=== PATIENT | female | born 1955 | race Caucasian/White ===

== ENCOUNTER 2018-08-23 08:19 | Day surgery (SDC) | payer MEDICARE, OTHER ==
[~2018-08-23] VITALS: Ht 162.6 cm; Wt 64.3 kg
[2018-08-23 08:47] VITALS: BP 121/68; PULSE 64; TEMP 97.9
[2018-08-23] MEDS ORDERED: SYNTHROID0.075 MG/T PO (08:58)
[2018-08-23] MEDS ORDERED: LIPITOR 10MG10 MG PO (08:59)
[2018-08-23 10:05] VITALS: BP 93/56; PULSE 60; TEMP 97.6
--- NOTE | 2018-08-23 10:05 | NUR ---
Pt to [facility] via cart from [facility]. Pt drowsy. Awakens easily. Pt ambulates to recliner with stand by assistance x2. Warm blanket provided. Pt wanting to sleep. Refused po fluids and food at this time. Call light within reach. Will continue to monitor. Call light within reach.
[2018-08-23 10:20] VITALS: BP 81/53; PULSE 58
--- NOTE | 2018-08-23 10:20 | NUR ---
Pt sleeping. Respirations even and unlabored. Will continue to monitor. Call light within reach.
[2018-08-23 10:35] VITALS: BP 89/54; PULSE 57
--- NOTE | 2018-08-23 10:35 | NUR ---
Pt continues to rest. in room. Pt denies need for food/water. Will continue to monitor.
--- NOTE | 2018-08-23 10:35 | NUR ---
Pt continues to sleep. Respirations even and unlabored. Call light within reach.
[2018-08-23 10:50] VITALS: BP 87/57; PULSE 60
--- NOTE | 2018-08-23 10:50 | NUR ---
Water and muffin given per pt request. Will continue to monitor. Call light within reach.
[2018-08-23 11:20] VITALS: BP 94/56; PULSE 55
--- NOTE | 2018-08-23 11:20 | NUR ---
Pt tolerating food and fluids without difficulties. Pt requesting to go home. Instructed pt and that we are waiting on blood pressure to come up a bit more closer to her preop baseline and then we can proceed with discharge. Pt and voice understanding. Call light within reach.
--- NOTE | 2018-08-23 11:40 | NUR ---
Discharge instructions reviewed. Pt voices understanding. Blood pressures stable. Pt denies dizziness. IV site discontinued with all parts intact. Pt up to dress with husbands help. Call light within reach.
--- NOTE | 2018-08-23 11:50 | NUR ---
Pt escorted to private car via wheel chair. Pt accompanied home by her .
== END 2018-08-23 11:50 | disposition home or self-care (01) ==
LOC: SDCO 08:19
DX: Z12.11 Encounter for screening for malignant neoplasm of colon (principal); K64.1 Second degree hemorrhoids; Z90.710 Acquired absence of both cervix and uterus
CPT/HCPCS: J2250; J3010; J7030

== ENCOUNTER → 2021-11-24 | Outpatient (CLI) | payer MEDICARE, OTHER ==
[~2021-11-24] MED LIST: LIPITOR 10MG10 MG PO; SYNTHROID0.075 MG/T PO
== END ==
LOC: MC.RAD 07:45
DX: N63.21 Unspecified lump in the left breast, upper outer quadrant (principal)